=== PATIENT | male | born 1970 | race Caucasian/White ===

== ENCOUNTER → 2020-12-30 | Outpatient (CLI) | payer OTHER | LOC: HEART 5 09:30 | DX: R06.02 Shortness of breath (principal); I08.8 Other rheumatic multiple valve diseases; I10 Essential (primary) hypertension; J44.9 Chronic obstructive pulmonary disease, unspecified; Z87.891 Personal history of nicotine dependence | CPT/HCPCS: 93306 ==

== ENCOUNTER → 2021-01-15 | Outpatient (CLI) | payer OTHER | LOC: HEART 5 08:15 | DX: R06.02 Shortness of breath (principal); I51.9 Heart disease, unspecified | CPT/HCPCS: 78452; A9502; J2785 ==

== ENCOUNTER → 2021-03-06 | Outpatient (CLI) | payer OTHER | LOC: HEART 5 10:43 | DX: R06.02 Shortness of breath (principal) | CPT/HCPCS: 94060; 94729 ==

== ENCOUNTER → 2021-09-03 | Outpatient (CLI) | payer OTHER ==
[~2021-09-03] MED LIST: ANORO ELLIPTA1 EACH INH; COREG12.5 MG PO; ENTRESTO 24 MG1 EACH PO; HYDROCHLOROTHIA25 MG PO
[2021-09-03 09:16] LABS: HEMOGLOBIN 16.2 gm/dl (14.0-17.5); RED BLOOD COUNT 5.42 M/UL (4.20-5.50); WHITE BLOOD COUNT 13.9 K/UL (4.5-11.0)
[2021-09-03 09:56] LABS: BUN/CREATININE RATIO 24 (0-10)
== END ==
LOC: LAB 07:48
PROVIDERS: Internal Medicine Cardiovascular Disease
DX: R94.39 Abnormal result of other cardiovascular function study (principal); I20.9 Angina pectoris, unspecified; I11.0 Hypertensive heart disease with heart failure; I50.22 Chronic systolic (congestive) heart failure; I42.9 Cardiomyopathy, unspecified; R05.9 Cough, unspecified; Z20.822 Contact with and (suspected) exposure to COVID-19
CPT/HCPCS: 36415; 71046; 80053; 80061; 83735; 84439; 84443; 85025

== ENCOUNTER → 2021-09-04 | Outpatient (CLI) | payer OTHER | LOC: CATH 08:42 | DX: I20.8 Other forms of angina pectoris (principal); R94.39 Abnormal result of other cardiovascular function study; I11.0 Hypertensive heart disease with heart failure; I50.22 Chronic systolic (congestive) heart failure; I42.9 Cardiomyopathy, unspecified; F19.10 Other psychoactive substance abuse, uncomplicated; Z72.0 Tobacco use; Z82.49 Family history of ischemic heart disease and other diseases of the circulatory system; Z20.822 Contact with and (suspected) exposure to COVID-19 | CPT/HCPCS: C1769; C1894; J1644; J2250; J3010; J7030; Q9965; U0002 ==

== ENCOUNTER 2021-11-27 10:39 | Outpatient (CLI) | payer OTHER ==
[~2021-11-27] VITALS: Ht 167.6 cm; Wt 80.4 kg
[2021-11-27 11:29] LABS: RED BLOOD COUNT 5.13 M/UL (4.20-5.50); WHITE BLOOD COUNT 14.3 K/UL (4.5-11.0)
[2021-11-27 11:43] LABS: BUN/CREATININE RATIO 21 (0-10)
[2021-11-27] MEDS ORDERED: ASPIRIN CHEWABL81 MG PO (11:57)
[2021-11-27] MEDS ORDERED: CLEOCIN HCL300 MG PO (15:26)
[2021-11-27] MEDS ORDERED: HYDROCODON-ACE1 EAC4 PO (15:26)
[2021-11-27] MEDS ORDERED: LEVOFLOXACIN500 MG PO (15:26)
== END 2021-11-28 11:55 | disposition home or self-care (01) ==
LOC: CATH 10:39 → PROG CARE 15:57 → CATH 11-28 11:55
PROVIDERS: Internal Medicine Cardiovascular Disease
DX: I50.22 Chronic systolic (congestive) heart failure (principal); I42.0 Dilated cardiomyopathy; F17.200 Nicotine dependence, unspecified, uncomplicated; I20.9 Angina pectoris, unspecified; I10 Essential (primary) hypertension; Z88.0 Allergy status to penicillin; Z79.82 Long term (current) use of aspirin
CPT/HCPCS: 33249; 71045; 80048; 82962; 85025; 93641; 94640; 94664; 94760; 99152; 99153; C1721; C1777; C1898; J1644; J2250; J2270; J3010; J3370; J7040; J7050; J7070